=== PATIENT | female | born 1980 | race Caucasian/White ===

== ENCOUNTER 2019-01-09 01:51 | Emergency (ER) | payer MEDICARE, MEDICAID | END 2019-01-09 05:02 | disposition home or self-care (01) | LOC: FTE 01:51 | DX: I10 Essential (primary) hypertension (principal); J45.909 Unspecified asthma, uncomplicated; F17.210 Nicotine dependence, cigarettes, uncomplicated; Z76.0 Encounter for issue of repeat prescription | CPT/HCPCS: 99283 ==